=== PATIENT | female | born 1990 | race Caucasian/White ===

== ENCOUNTER 2016-08-19 01:19 | Outpatient (CLI) | payer BC, MEDICAID ==
[2016-08-19 02:00] LABS: AMORPHOUS SEDIMENT,URINE TRACE /HPF; APPEARANCE,URINE SLIGHTLY-CLOUDY; BILIRUBIN,URINE NEGATIVE (NEGATIVE); GLUCOSE, URINE NEGATIVE (NEGATIVE); KETONES,URINE NEGATIVE (NEGATIVE); LEUKOCYTE ESTERASE,URINE TRACE (NEGATIVE); NITRITE,URINE NEGATIVE (NEGATIVE); PROTEIN,URINE NEGATIVE (NEGATIVE); URINE SPECIFIC GRAVITY 1.015
[2016-08-19 02:11] LABS: URINE BARBITURATES SCREEN NEGATIVE; URINE METHADONE SCREEN NEGATIVE; URINE OPIATES LOW NEGATIVE; URINE PHENCYCLIDINE SCREEN NEGATIVE
== END 2016-08-19 02:48 | disposition home or self-care (01) ==
LOC: LC 01:19
PROVIDERS: ATTEND Obstetrics & Gynecology
DX: P59.9 Neonatal jaundice, unspecified (principal)
CPT/HCPCS: 80307; 81001

== ENCOUNTER 2016-10-05 10:34 | Outpatient (CLI) | payer BC, MEDICAID ==
[2016-10-05] MEDS ORDERED: RINGERS SOLUTION,LACTATED 1,000 ML IV PRN (11:00)
[2016-10-05 11:13] LABS: APPEARANCE,URINE HAZY; BILIRUBIN,URINE NEGATIVE (NEGATIVE); GLUCOSE, URINE NEGATIVE (NEGATIVE); KETONES,URINE NEGATIVE (NEGATIVE); LEUKOCYTE ESTERASE,URINE LARGE (NEGATIVE); NITRITE,URINE NEGATIVE (NEGATIVE); PROTEIN,URINE NEGATIVE (NEGATIVE); UROBILINOGEN,URINE NEGATIVE mg/dL (<2.0)
[2016-10-05 11:15] LABS: URINE SPECIFIC GRAVITY 1.003
[2016-10-05 11:39] LABS: URINE BARBITURATES SCREEN NEGATIVE; URINE METHADONE SCREEN NEGATIVE; URINE OPIATES LOW NEGATIVE; URINE PHENCYCLIDINE SCREEN NEGATIVE
[2016-10-05] MEDS ORDERED: TERBUTALINE SULFATE INJ/PF 1 MG/1 ML SDV ONE (12:43)
[2016-10-05] MEDS ORDERED: TERBUTALINE SULFATE INJ/PF 1 MG/1 ML SDV SUBCUT ONE (13:35)
--- NOTE | 2016-10-05 14:42 | Non Stress Test Report ---
Non Stress Test Datetime Report Generated by CPN: 10/05/2016 14:42 DEMOGRAPHIC EGA NST: 37.0 INDICATION Indication for Study: Other Indication for Study (NST) Other: here for version MONITORING Monitor Explained: Monitor Explained; Test Explained; Patient Verbalized Understanding Time on Monitor: 10/05/2016 11:10 Time off Monitor: 10/05/2016 14:10 NST Duration: 180 NST INTERVENTIONS NST Interventions: Reposition Patient Physician Notified NST: DR EVANS BABY A: [id number] BABY A Movement : Present Contraction Frequency : OCC FHR Baseline : 135 Accelerations : 15X15 Decelerations : None Variability : Moderate 6-25bpm NST Review: Meets Criteria for Reactive NST NST Review and Verified By : Tammy Pichardo RN NST Results: Reactive NST REPORT Report Trigger: Send Report (Annotations: Data stored by [facility] on behalf of user)
== END 2016-10-05 14:40 | disposition home or self-care (01) ==
LOC: LC 10:34
PROVIDERS: ATTEND Obstetrics & Gynecology
DX: O32.1XX0 Maternal care for breech presentation, not applicable or unspecified (principal)
CPT/HCPCS: 59025; 81005; 80307; J3105

== ENCOUNTER 2016-10-19 05:00 | Inpatient (IN) | payer BC, MEDICAID ==
[2016-10-18 11:52] LABS: APPEARANCE,URINE SLIGHTLY-CLOUDY; BILIRUBIN,URINE NEGATIVE (NEGATIVE); CALCIUM OXALATE CRYSTALS,URINE RARE /HPF; GLUCOSE, URINE NEGATIVE (NEGATIVE); KETONES,URINE NEGATIVE (NEGATIVE); LEUKOCYTE ESTERASE,URINE TRACE (NEGATIVE); NITRITE,URINE NEGATIVE (NEGATIVE); PROTEIN,URINE NEGATIVE (NEGATIVE); URINE SPECIFIC GRAVITY 1.009; UROBILINOGEN,URINE NEGATIVE mg/dL (<2.0)
[2016-10-18 12:00] LABS: HEMATOCRIT 32.5 % (36.0-47.0); HEMOGLOBIN 10.7 g/dL (12.0-15.5); HGB HCT DIFFERENCE -0.4; MEAN CORPUSCULAR HEMOGLOBIN 27.7 pg (27.0-33.4); MEAN CORPUSCULAR VOLUME 84 fl (80-97); RED BLOOD COUNT 3.87 10^6/uL (3.72-5.28); RED CELL DISTRIBUTION WIDTH 13.9 % (11.5-14.0); WHITE BLOOD COUNT 12.7 10^3/uL (4.0-10.5)
[2016-10-18 12:28] LABS: BASOPHILS % (MANUAL) 0 % (0-2); EOSINOPHILS % (MANUAL) 0 % (0-6); LYMPHOCYTES % (MANUAL) 16 % (13-45); TOTAL CELLS COUNTED 100
[2016-10-18 12:29] LABS: URINE BARBITURATES SCREEN NEGATIVE; URINE METHADONE SCREEN NEGATIVE; URINE OPIATES LOW NEGATIVE; URINE PHENCYCLIDINE SCREEN NEGATIVE
[2016-10-18 12:36] LABS: POLYCHROMASIA SLIGHT
[2016-10-18 12:40] LABS: TOXIC GRANULATION SLIGHT
[2016-10-18 12:41] LABS: OVALOCYTES SLIGHT; POIKILOCYTOSIS SLIGHT
[~2016-10-19 05:00] MED LIST: CEFAZOLIN 1 GM/D5W RTU 1 GM/50 ML RTUPB IV PRN; LACTATED RINGERS 1000 ML IV PRN; LIDOCAINE 0.5% INJ-PF (5 MG/ML) 50 ML SDV SUBCUT PRN; RINGERS SOLUTION,LACTATED 1,500 ML IV PRN
[2016-10-19] MEDS ORDERED: CEFAZOLIN 1 GM/D5W RTU 1 GM/50 ML RTUPB IV ONE (06:15)
[2016-10-19] MEDS ORDERED: OXYTOCIN 10 UNIT/ML VIAL ONE (07:30)
[2016-10-19] MEDS ORDERED: MIDAZOLAM 2 MG/2 ML INJ ONE (07:31)
[2016-10-19] MEDS ORDERED: ONDANSETRON HCL INJ/PF 4 MG/2 ML SDV ONE (07:31)
[2016-10-19] MEDS ORDERED: FENTANYL CITRATE INJ/PF 100 MCG/2 ML AMPUL ONE ×2 (07:31→10:33)
[2016-10-19] MEDS ORDERED: FENTANYL CITRATE INJ/PF 100 MCG/2 ML AMPUL IV PRN ×3 (08:40)
[2016-10-19] MEDS ORDERED: OXYCODONE-ACETAMINOPHEN 5-325 MG TABLET PO PRN ×3 (08:40→12:13)
[2016-10-19] MEDS ORDERED: MORPHINE SULFATE 10 MG/ML INJ IV PRN (08:40)
[2016-10-19] MEDS ORDERED: DIPHENHYDRAMINE HCL 50 MG/ML VIAL IV PRN (08:40)
[2016-10-19] MEDS ORDERED: MEPERIDINE HCL/PF INJ 25 MG/1 ML DISP.SYRIN IV PRN (08:40)
[2016-10-19] MEDS ORDERED: PROMETHAZINE HCL INJ 25 MG/1 ML VIAL IV PRN ×3 (08:40→12:13)
[2016-10-19] MEDS ORDERED: KETOROLAC TROMETHAMINE INJ/PF 30 MG/1 ML SDV ONE (08:51)
[2016-10-19] MEDS ORDERED: ACETAMINOPHEN 100 ML IV ONE (08:52)
--- NOTE | 2016-10-19 09:13 | Brief Operative Note ---
BRIEF OPERATIVE REPORT DATE OF SURGERY: 10/19/16 TIME OF SURGERY: 09:00 PREOPERATIVE DIAGNOSIS: , PUND at 39+0ega, A1GDM, Anxiety d/o, Breech presentation POSTOPERATIVE DIAGNOSIS: AYAH - delivered SURGEON: AYLIN TORRES FINDINGS: VFI in dolores breech presentation with feet and arms above head, APgars 9/9, weight 5#13oz, time of 0814, [id number], UOP 200ml of clear urine., normal tubes/ovaries, normal uterus COMPLICATIONS: None ESTIMATED BLOOD LOSS: 700ml TISSUE REMOVED OR ALTERED: placenta and cord not sent to pathology TECHNICAL PROCEDURE: Primary LTCS
--- NOTE | 2016-10-19 09:14 | PDOC DELIVERY SUMMARY ---
Delivery Summary - Maternal Hx : I Hx Para: 0 Hx # Term Pregnancies: 0 Hx # Pregnancies: 0 Hx Total # of Abortions (Sponateous & Elective): 0 Number of Living Children: 0 BIPIN: 10/26/16 Gestational Age: 39+0 Risk Factors: Gestational Diabetes, Other - Breech, EFW 14% Ruptured Membranes: AROM Time of Rupture: 08:13 Fluids: Clear - Delivery Labor: Not In Labor Presentation: Breech Heart Rate Monitoring: Done Pre-Operatively Uterine Contraction Monitoring: External Support Person Present: Yes Location: OR : Scheduled Placenta: Within Normal Limits Placenta Description: normal Number of Vessels (Cord): 3 Nuchal Cord: No Delivery of Placenta Date: 10/19/16 Delivery of Placenta Time: 08:16 - Medications Type of Anesthesia:: Spinal - Assess and Care Baby 1 Female Delivery of Date: 10/19/16 Delivery of Time: 08:14 at 1 minute: 9 at 5 minutes: 9 Preprinted Number On Band: [id number] Skin to Skin: No To Nursery At: 08:27 Mode of Transport: Bassinet Infant Delivery Weight: 2640 kg Delivery Length: 18.75 in - Delivery Personnel Mechanic Helper: FRANKIE HAINES RN: MIMA Landry RN: JHONATAN RN: ENMA HUSTON MD: AYLIN TORRES
[2016-10-19] MEDS ORDERED: DIPHENHYDRAMINE HCL 50 MG/ML VIAL ONE (10:06)
[2016-10-19] MEDS ORDERED: SIMETHICONE 80 MG TAB.CHEW PO PRN (12:12)
[2016-10-19] MEDS ORDERED: DIPH/PERTUSS(ACELL)/TETANUS VAC/PF 0.5 ML SYR (>=10YO) IM PRN (12:12)
[2016-10-19] MEDS ORDERED: OXYTOCIN/NORMAL SALINE 1,000 ML IV PRN (12:12)
[2016-10-19] MEDS ORDERED: ACETAMINOPHEN 325 MG TABLET PO PRN (12:12)
[2016-10-19] MEDS ORDERED: MEASLES,MUMPS&RUBELLA VACC/PF 0.5 ML VIAL SUBCUT PRN (12:12)
[2016-10-19] MEDS: HYDROMORPHONE HCL INJ/PF 2 MG/ML AMPULE IV PRN ×2 (12:33→19:58)
[2016-10-19] MEDS: OXYCODONE-ACETAMINOPHEN 5-325 MG TABLET PO PRN ×2 (14:32→22:35)
[2016-10-19] MEDS ORDERED: KETOROLAC TROMETHAMINE INJ/PF 30 MG/1 ML SDV IV SCH (17:00)
[2016-10-19] MEDS: DOCUSATE SODIUM 100 MG CAPSULE PO SCH (17:12)
[2016-10-19] MEDS: KETOROLAC TROMETHAMINE INJ/PF 30 MG/1 ML SDV IV SCH (17:13)
[2016-10-20] MEDS: KETOROLAC TROMETHAMINE INJ/PF 30 MG/1 ML SDV IV SCH ×3 (02:47→18:36)
--- NOTE | 2016-10-20 06:52 | Operative Report ---
Operative Report DATE OF SURGERY: 10/19/16 PREOPERATIVE DIAGNOSIS: , PUND at 39+0ega, A1GDM, Anxiety d/o, Breech presentation POSTOPERATIVE DIAGNOSIS: AYAH - delivered OPERATION: Primary LTCS SURGEON: AYLIN TORRES ANESTHESIA: Spinal TISSUE REMOVED OR ALTERED: placenta and cord not sent to pathology COMPLICATIONS: none ESTIMATED BLOOD LOSS: 700ml INTRAOPERATIVE FINDINGS: VFI in dolores breech presentation with feet and arms above head, APgars 9/9, weight 5#13oz, time of 0814, [id number], UOP 200ml of clear urine., normal tubes/ovaries, normal uterus PROCEDURE: Anesthesia: Spinal Anesthesia provider: [Kristina Beal CRNA] Estimated blood loss: [700ml] Urine output: [200ml] IV fluids: [1450ml] Complications: [None] Specimens: [None] Indications: [25yo at 39+0ega with c/b persistent breech presentation, anxiety and A1GDM. She was offered external cephalic version and declined. The risks benefits and alternatives to primary section were reviewed and she desires to proceed with planned delivery by primary section for breech.] Procedure: The patient was taken to the operating room where spinal anesthesia was obtained and found to be adequate. She was then prepped and draped in the normal sterile fashion and placed in the dorsal supine position with a leftward tilt. A Pfannenstiel skin incision was then made and carried through to the underlying layers of the fascia with the scalpel. The fascia was incised in the midline and the incision extended laterally with the Reynolds scissors. The superior aspect of the fascial incision was then grasped with Octavio clamps elevated and the underlying rectus muscles dissected off [bluntly]. Attention was then turned to the inferior aspect of the fascial incision which in a similar fashion was grasped, tented up with John clamps, and the rectus muscles dissected off [bluntly]. The rectus muscles were then in the midline and the peritoneum at the amount identified and entered sharply. The peritoneal incision was then extended superiorly and inferiorly with good visualization of the bladder. The bladder blade was inserted and the vesicouterine peritoneum identified grasped with Tajik pickups and entered sharply with the Metzenbaum scissors. This incision was then extended laterally with the Metzenbaum scissors and a bladder flap created digitally. The bladder blade was then reinserted and the lower uterine segment incised in a transverse fashion with the scalpel. The uterine incision was then extended bluntly. The bladder blade was removed and the 's head was delivered from breech presentation atraumatically. The nose and mouth were suctioned and the cord doubly clamped and cut. And the infant was handed off to waiting pediatricians. The placenta was then delivered spontaneously and the uterus exteriorized and cleared of all clots and debris. The uterine incision was then repaired with 1- 0 Vicryl in a running locked fashion. A second layer of the same suture was used to obtain hemostasis via imbrication of the initial layer. The bladder flap was then repaired with 3-0 chromic in a running fashion. The uterus was returned to the patient's abdomen and Interceed was placed overlying the uterine incision to prevent adhesions. The gutters were cleared of all clots and debris. All operative sites were noted to be hemostatic. The fascia was reapproximated with 0 Vicryl in a running fashion from each lateral edge to the midline. The skin was closed with 3-0 Monocryl in a running subcuticular fashion with overlying Dermabond for additional dressing as well as wound closure. The patient tolerated the procedure well. Sponge lap needle and instrument counts are correct times 2. 2 g of Ancef were given prior to skin incision. The patient was taken to the recovery area awake and in stable condition.
[2016-10-20 07:19] LABS: HEMATOCRIT 23.8 % (36.0-47.0); HGB HCT DIFFERENCE 0.5; MEAN CORPUSCULAR HEMOGLOBIN 29.2 pg (27.0-33.4); MEAN CORPUSCULAR HGB CONC 34.2 g/dL (32.0-36.0); MEAN CORPUSCULAR VOLUME 85 fl (80-97); RED CELL DISTRIBUTION WIDTH 13.8 % (11.5-14.0); WHITE BLOOD COUNT 8.5 10^3/uL (4.0-10.5)
[2016-10-20 07:27] LABS: HEMOGLOBIN 8.1 g/dL (12.0-15.5)
[2016-10-20] MEDS: OXYCODONE-ACETAMINOPHEN 5-325 MG TABLET PO PRN ×4 (07:32→22:19)
[2016-10-20] MEDS: DOCUSATE SODIUM 100 MG CAPSULE PO SCH ×2 (10:29→18:24)
[2016-10-20] MEDS: PRENATAL VITAMIN W-O CA NO5/FE FUMARATE/FA CAPSULE PO SCH (10:38)
--- NOTE | 2016-10-20 11:23 | PDOC PROGRESS REPORT ---
Subjective-OB Subjective: Post Delivery Day:1 25 year old G1 now P1 s/p primary for breech presentation. Ambulating and voiding without difficulty. Pain tolerable and well controlled with meds. Denies any needs at this time Physical Exam (OB) Vital Signs: Temp Pulse Resp BP Pulse Ox 97.9 F 84 16 118/73 100 10/20/16 08:45 10/20/16 08:45 10/20/16 08:45 10/20/16 08:45 10/20/16 08:45 Intake & Output 10/19/16 10/20/16 10/21/16 06:59 06:59 06:59 Intake Total 1190 Output Total 2100 Balance -910 Weight 66.68 kg - General General Appearance: Appears well In distress: None - Dressing Removed: Yes Incision: Well Approximated Closure Type: Surgical Glue - Lochia Lochia Amount: Scant < 10 ml Lochia Color: Rubra/Red - Abdomen Description: Tender, Soft, Round, Distended Hernia Present: No Fundal Description: Firm, Midline Fundal Height: u/u - u/2 - Respiratory Respiratory Status: No respiratory distress - Extremities Upper extremity: Normal inspection Lower extremities: Normal inspection Calf: Normal Ankle: Normal Foot: Normal - Neurological Cognition: Normal Orientation: AAOx4 - Psychological Associated symptoms: Normal affect, Normal mood - bonding well with baby. Helpful at bedside. Objective-Diagnostic Laboratory: 10/20/16 06:52 10/20/16 06:52 WBC 8.5 RBC 2.80 L Hgb 8.1 L D Hct 23.8 L MCV 85 MCH 29.2 MCHC 34.2 RDW 13.8 Plt Count 157 Assessment and Plan(PN) - Assessment and Plan (1) Status post primary low transverse section Is this a current diagnosis for this admission?: YesPlan: continue stay (2) Acute blood loss anemia Is this a current diagnosis for this admission?: YesPlan: increase po intake of iron and dietary intake - Time Spent with Patient Time with patient: 15-25 minutes Medications reviewed and adjusted accordingly: Yes - Disposition Anticipated Discharge: Home Within: within 24 hours
[2016-10-20] MEDS: IBUPROFEN 800 MG TABLET PO SCH ×2 (18:25→23:26)
[2016-10-21] MEDS: KETOROLAC TROMETHAMINE INJ/PF 30 MG/1 ML SDV IV SCH ×2 (02:01→10:09)
[2016-10-21] MEDS: IBUPROFEN 800 MG TABLET PO SCH (05:17)
[2016-10-21] MEDS: OXYCODONE-ACETAMINOPHEN 5-325 MG TABLET PO PRN (08:31)
--- NOTE | 2016-10-21 09:10 | PDOC PROGRESS REPORT ---
Subjective-OB Subjective: Post Delivery Day: 25 year old. Denies any needs at this time Doing well, OOB in room, family at BS, eating well, voiding, pain under control , passing gas Physical Exam (OB) Vital Signs: Temp Pulse Resp BP Pulse Ox 98.7 F 82 16 125/85 99 10/21/16 08:04 10/21/16 08:04 10/21/16 08:04 10/21/16 08:04 10/21/16 08:04 Intake & Output 10/20/16 10/21/16 10/22/16 06:59 06:59 06:59 Intake Total 1190 Output Total 2100 Balance -910 - Dressing Removed: Yes Incision: Open Closure Type: Surgical Glue - Lochia Lochia Amount: Scant < 10 ml Lochia Color: Rubra/Red - Abdomen Description: Tender, Soft, Round Hernia Present: No Fundal Description: Firm, Midline Fundal Height: u/u - u/2 Objective-Diagnostic Laboratory: 10/20/16 06:52 Assessment and Plan(PN) - Assessment and Plan (1) Status post primary low transverse section Is this a current diagnosis for this admission?: Yes (2) Acute blood loss anemia Is this a current diagnosis for this admission?: Yes - Time Spent with Patient Time with patient: Less than 15 minutes Medications reviewed and adjusted accordingly: Yes - Disposition Anticipated Discharge: Home Within: Other - home today
--- NOTE | 2016-10-21 09:15 | PDOC DISCHARGE SUMMARY ---
Final Diagnosis Discharge Date: 10/21/16 - Final Diagnosis (1) Status post primary low transverse section Is this a current diagnosis for this admission?: Yes (2) Acute blood loss anemia Is this a current diagnosis for this admission?: Yes Discharge Data - Discharge Medication Home Medications: Doxylamine/Pyridoxine HCl [Diclegis Dr 10-10 mg Tablet] 1 each PO DAILY Pnv No.122/Iron/Folic Acid [ Multi Tablet] 1 each PO DAILY 10/18/16 Ibuprofen [Motrin 800 mg Tablet] 800 mg PO Q6 #60 tablet 10/21/16 Oxycodone HCl/Acetaminophen [Percocet 5-325 mg Tablet] 1 tab PO Q4HP PRN #30 tablet 10/21/16 Gestational Age: 39 Reason(s) for Admission: Ceasarean Section-Primary Admission Note: Breech, failed version Procedures: NST, Ultrasound Intrapartum Procedure(s): : Low Cervical, Transverse - Data Baby 1 Female at 1 minute: 9 at 5 minutes: 9 Weight: 2.637 kg Home with Mother: Yes Complications: No - Diagnosis Test Laboratory: Temp Pulse Resp BP Pulse Ox 98.7 F 82 16 125/85 99 10/21/16 08:04 10/21/16 08:04 10/21/16 08:04 10/21/16 08:04 10/21/16 08:04 10/18/16 10/18/16 10/20/16 11:00 11:05 06:52 RBC 3.87 2.80 L Hgb 10.7 L 8.1 L D Hct 32.5 L 23.8 L Urine Opiates Screen NEGATIVE - Discharge information/Instructions Discharge Activity: Activity As Tolerated, No Lifting Over 10 Pounds, No Lifting /Push/Pulling, Pelvic Rest Discharge Diet: As Tolerated, Regular Disposition: HOME, SELF-CARE Follow [facility] with: [facility] in: 1, Weeks
[2016-10-21] MEDS: DOCUSATE SODIUM 100 MG CAPSULE PO SCH (10:10)
[2016-10-21] MEDS: PRENATAL VITAMIN W-O CA NO5/FE FUMARATE/FA CAPSULE PO SCH (10:11)
[2016-10-21 12:08] VITALS: BP 115/65
== END 2016-10-21 12:15 | disposition home or self-care (01) | DRG 765 ==
LOC: 2S 05:00 → UNDOADMIN 06:33 → 2S 06:33
PROVIDERS: ADMIT Student in an Organized Health Care Education/Training Program; ATTEND Student in an Organized Health Care Education/Training Program
PROC: 4A1HXCZ Monitoring of Products of Conception, Cardiac Rate, External Approach (ICD-10-PCS; 2016-10-19)
PROC: 10D00Z1 Extraction of Products of Conception, Low, Open Approach (ICD-10-PCS; principal; 2016-10-19 07:45)
DX: O32.1XX0 Maternal care for breech presentation, not applicable or unspecified (principal); D62 Acute posthemorrhagic anemia; O24.420 Gestational diabetes mellitus in childbirth, diet controlled; O99.02 Anemia complicating childbirth; O99.344 Other mental disorders complicating childbirth; F41.9 Anxiety disorder, unspecified; Z79.899 Other long term (current) drug therapy; Z82.61 Family history of arthritis; Z83.3 Family history of diabetes mellitus; Z82.49 Family history of ischemic heart disease and other diseases of the circulatory system; Z3A.39 39 weeks gestation of pregnancy; Z37.0 Single live birth
CPT/HCPCS: 1961; 36415; 59025; 80307; 81001; 82962; 85025; 85027; 86850; 86900; 86901; 94799; C1765; J0131; J0690; J1170; J1200; J1885; J2250; J2405; J2590; J3010; J7120

== ENCOUNTER 2020-01-21 11:53 | Outpatient (CLI) | payer OTHER | END 2020-01-21 12:59 | disposition home or self-care (01) | LOC: LC 11:53 | PROVIDERS: ATTEND Obstetrics & Gynecology | DX: Z34.83 Encounter for supervision of other normal pregnancy, third trimester (principal); Z3A.34 34 weeks gestation of pregnancy | CPT/HCPCS: 59025 ==